=== PATIENT | male | born 1995 | race African-American/Black ===

== ENCOUNTER 2019-12-21 01:16 | Emergency (ER) | payer SELFPAY ==
[~2019-12-21] VITALS: Ht 185.4 cm; Wt 127.0 kg
--- NOTE | 2019-12-21 01:56 | Emergency Department Note ---
History of Present Illnes History of Present Illness Chief Complaint: COVID PUI History of Present Illness This is a 24 year old male, with no significant past medical history, who presents with a two-week history of progressively worsening cough that is productive of clear sputum and intermittent loose stools. Patient states that his symptoms started with headaches and then last Saturday he began to cough and produce mucus. He has had posttussive emesis, along with some dry heaving. He denies any fever, chills, chest pain or shortness of breath. Patient states that initially he was having quite a bit of diarrhea, but is now having about 2 loose stools per day. Patient was seen at an urgent care setting on 12/18/2019, and he states that he had a chest x-ray and urinalysis, and that he was informed that "they did not know the cause of his symptoms." Patient states that he was tested for Covid 19 approximately one week ago, through his work, and he states that the results were negative. He has been furloughed from his job, and he was working for "[employer]," until his symptoms were so persistent that he has been unable to work. Historian: Patient Arrival Mode: Car [employer] Required: No Onset (how long ago): week(s) (2) Location: chest Quality: spasmodic, persistent cough with mucous production Radiation: Reports non-radiation Severity: moderate Onset quality: gradual Duration (how long): week(s) (2) Timing of current episode: intermittent Progression: worsening (the cough is making it difficult to sleep) Context: Denies recent illness, Denies recent travel, Denies new medications Relieving factors: none Exacerbating factors: none Associated symptoms: Reports cough, Reports headaches, Reports nausea/vomiting; Denies chest pain, Denies fever/chills, Denies shortness of breath, Denies weakness Treatments prior to arrival: cold therapy Risk factors: Someone at work tested positive for COVID @ 2 weeks ago Past Medical/Family History Physician Review I have reviewed the patient's past medical and family history. Any updates have been documented here. Past Medical History Recent Fever: No Clinical Suspicion of Infectio: Yes New/Unexplained Change in Ment: No Past Surgical History: None Social History Smoking Cessation: Never Smoker Alcohol Use: None Any Illegal Drug Use: No TB Exposure/Symptoms: No Physically hurt or threatened: No Family History Family history of heart diseas: No Other Any Pre-Existing Lines (PICC,: No Is patient up to date on immun: No Review of Systems Review of Systems Constitutional: Reports malaise; Denies chills, Denies fever EENTM: Reports no symptoms Cardiovascular: Denies chest pain, Denies palpitations Respiratory: Reports change in phlegm color (clear to yellow), Reports cough, Reports excessive phlegm production; Denies pain on inspiration, Denies pain with cough, Denies dyspnea, Denies dyspnea on exertion Gastrointestinal: Reports diarrhea (1-2x/day), Reports vomiting (posttussive emesis); Denies abdominal pain Genitourinary: Reports frequency; Denies dysuria, Denies hematuria Musculoskeletal: Reports no symptoms Integumentary: Reports no symptoms Neurological: Reports no symptoms; Denies numbness, Denies paresthesia, Denies weakness Psychological: Reports no symptoms Endocrine: Reports no symptoms Review of other systems: All other systems negative Physical Exam Related Data Allergies: Coded Allergies: No Known Allergies (Unverified , 12/21/19) Vital signs reviewed: Yes Physical Exam CONSTITUTIONAL Constitutional: Present well-developed, Present well-nourished, Present obese HENT HENT: Present normocephalic, Present atraumatic, Present oropharynx clear/moist, Present nose normal HENT L/R: Present left ext ear normal, Present right ext ear normal EYES Eyes: Reports PERRL, Reports conjunctivae normal NECK Neck: Present ROM normal PULMONARY Pulmonary: Present effort normal; Absent breath sounds normal (prolonged expiratory phase with diffuse, intermittent crackles), Absent respiratory distress CARDIOVASCULAR Cardiovascular: Present regular rhythm, Present heart sounds normal, Present capillary refill normal, Present normal rate GASTROINTESTINAL Abdominal: Present soft, Present nontender, Present bowel sounds normal; Absent tender, Absent guarding GENITOURINARY Genitourinary: Present exam deferred SKIN Skin: Present warm, Present dry; Absent rash MUSCULOSKELETAL Musculoskeletal: Present ROM normal NEUROLOGICAL Neurological: Present alert, Present oriented x 3 PSYCHOLOGICAL Psychological: Present mood/affect normal Results Laboratory Laboratory CMP - nl except for K+ = 3.1, Cl = 94, Gluc = 407, Cr = 0.6, ALT = 51, AST = 44; Influenza A/B - negative; UA - gluc = 500 mg/dl, ket - trace; WBC - normal; Accucheck 1 hour after pt received 2L NS and 10 Units of Regular Insulin, IV, glucose is 220 mg/dl, down from 407 mg/dl; Lab results reviewed: Yes Imaging Imaging results reviewed: Yes Impressions [place] [id number] Patient Name: JAREK HAGEN MR #: [id number] : 1995 Age/Sex: 24/M Req #: [id number] Adm Physician: Ordered by: JODEE HERNDON MD Report #: [id number] Location: [facility] Room/Bed: Procedure: [id number] HOPD/CXR 2 VIEW - H[facility] Exam Date: 12/21/19 Exam Time: 224 REPORT STATUS: Signed EXAMINATION: CXR 2 VIEW - HOPD INDICATION: ^persistent, productive cough ^[id number] ^224 COMPARISON: None FINDINGS: TUBES and LINES: None. LUNGS: Ill-defined opacities of the lower lobes. Normal pulmonary vasculature. PLEURA: No pleural effusion or pneumothorax. HEART AND MEDIASTINUM: The cardiomediastinal silhouette is unremarkable. BONES AND SOFT TISSUES: No acute osseous lesion. Soft tissues are unremarkable. UPPER ABDOMEN: No free air under the diaphragm. IMPRESSION: Bilateral lower lobe airspace opacities. Consider viral pneumonia. Signed by: Senthil Otero MD on 12/21/2019 2:31 AM Dictated By: SENTHIL OTERO MD 0 Transcribed By: DANYELLE on 12/21/19230 COPY TO: JODEE HERNDON MD~ Diagnostics Tests Diagnostic test(s) reviewed: Yes Assessment & Plan Medical Decision Making MDM Drink at LEAST 1-gallon of water daily, or more, if needed. Pt received 10 Units of Regular Insulin IV, with decrease in glucose from 407 to 220. He also received 2L of NS. Discussed with patient the signs and symptoms of hypoglycemia, and how to treat it. Pt was sent home with 2 cartons, of juice, in case he feels shaky, diaphoretic, nauseated, etc. He is encouraged to obtain a glucometer to check his blood sugars, as soon as possible. Take medications as directed, and use the inhaler for cough every 4-6 hours. We are unable to use steroids, due to blood glucose, of just over 400. Self Quarantine, as discussed, as you clinically have COVID 19 Pneumonia. *Establish care with a Primary Care Physician ZACHERY, for management of New Onset Type II Diabetes, and other general medical issues. Begin Metformin, as discussed, tomorrow, with meals, for new onset Type II DM. Take with meals. Beware of signs and symptoms of hypoglycemia, and treat as we discussed. Concentrate on a Low Carb diet: restricting concentrated sugars: candy, sweets, pastries, tortillas, chips, bread, pasta, etc. Proper LOW CARB DIET, exercise and weight loss can reverse Type II DM. Return to the ER, if you develop difficulty breathing or severe chest pain. Pt voiced understanding of the plan. Assessment & Plan Final Impression: (1) Pneumonia due to COVID-19 virus (2) Acute bronchospasm (3) New onset type 2 diabetes mellitus (4) Hyperglycemia due to type 2 diabetes mellitus Depart Disposition: HOME, SELF-FPC Meds Active Scripts Ondansetron (ONDANSETRON ODT) 8 Mg Tab.rapdis, 4 MG PO Q6H PRN for nausea/vomiting, #20 TAB 0 Refills Prov:JODEE HERNDON MD 12/21/19 Albuterol Sulfate (PROVENTIL HFA) 6.7 Gm Hfa.aer.ad, 2 INH INH Q4HR PRN for cough, #1 INH 0 Refills Prov:JODEE HERNDON MD 12/21/19 Metformin Hcl (METFORMIN HCL) 500 Mg Tablet, 1 TAB-CAP PO BID for diabetes, #60 TAB 0 Refills Prov:JODEE HERNDON MD 12/21/19 Azithromycin (ZITHROMAX) 250 Mg Tablet, 2 TAB PO DAILY PRN for pneumonia for 5 Days, #6 TAB 0 Refills 2 tabs po today, then 1 po dailys x 4 days, for pneumonia. Take ALL antibiotics. Prov:JODEE HERNDON MD 12/21/19 JODEE HERNDON MD Dec 21, 2019 01:56
[2019-12-21] MEDS ORDERED: DEXAMETHASONE SOD PHOS 10 MG/1 ML VIAL IV ONE (02:00)
[2019-12-21] MEDS ORDERED: SODIUM CHLORIDE 0.9% 1000ML 1,000 ML IV SCH ×2 (02:00→03:00)
[2019-12-21] MEDS ORDERED: SODIUM CHLORIDE 0.9% 1000ML 1,000 ML ONE ×2 (02:10→02:50)
--- NOTE | 2019-12-21 02:34 | Diagnostic Imaging Report ---
EXAMINATION: CXR 2 VIEW - HOPD INDICATION: ^persistent, productive cough ^[id number] ^0225 COMPARISON: None FINDINGS: TUBES and LINES: None. LUNGS: Ill-defined opacities of the lower lobes. Normal pulmonary vasculature. PLEURA: No pleural effusion or pneumothorax. HEART AND MEDIASTINUM: The cardiomediastinal silhouette is unremarkable. BONES AND SOFT TISSUES: No acute osseous lesion. Soft tissues are unremarkable. UPPER ABDOMEN: No free air under the diaphragm. IMPRESSION: Bilateral lower lobe airspace opacities. Consider viral pneumonia. Signed by: Shiv Chamorro MD on 12/21/2019 2:31 AM
[2019-12-21] MEDS ORDERED: AZITHROMYCIN 500MG/NS 250 ML 250 ML ONE (02:42)
[2019-12-21] MEDS ORDERED: POTASSIUM CHLORIDE 20 MEQ TAB CR PO STA (02:43)
[2019-12-21] MEDS ORDERED: INSULIN REGULAR, HUMAN 100 UNIT/1 ML 3ML VIAL IV ONE (02:45)
[2019-12-21] MEDS ORDERED: AZITHROMYCIN 500MG/NS 250 ML 250 ML IV ONE (02:45)
[2019-12-21] MEDS ORDERED: ONDANSETRON HCL INJ 2MG/ML 2ML 2 MG/ML VIAL IV STA (02:47)
[2019-12-21] MEDS ORDERED: POTASSIUM CHLORIDE 20 MEQ TAB CR PO ONE (02:50)
[2019-12-21] MEDS ORDERED: ONDANSETRON HCL INJ 2MG/ML 2ML 2 MG/ML VIAL ONE (02:50)
[2019-12-21] MEDS ORDERED: ACETAMINOPHEN/CODEINE ELIX 120-12 MG/5 ML UDC ONE (03:11)
[2019-12-21] MEDS ORDERED: ACETAMINOPHEN/CODEINE ELIX 120-12 MG/5 ML UDC PO ONE (03:15)
[2019-12-21] MEDS ORDERED: ZITHROMAX250 MG PO (03:55)
[2019-12-21] MEDS ORDERED: METFORMIN HCL500 MG PO (03:57)
[2019-12-21] MEDS ORDERED: PROVENTIL HFA6.7 GM INH (04:05)
[2019-12-21] MEDS ORDERED: ONDANSETRON ODT8 MG PO (04:09)
== END 2019-12-21 04:45 | disposition home or self-care (01) ==
LOC: FSED 02:08
DX: U07.1 COVID-19 (principal); J18.9 Pneumonia, unspecified organism; E11.65 Type 2 diabetes mellitus with hyperglycemia; R05 Cough; J98.01 Acute bronchospasm
CPT/HCPCS: 71046; 80053; 81003; 85025; 99283; J0456; J2405; J7030